=== PATIENT | female | born 1945 | race Caucasian/White ===

== ENCOUNTER 2019-08-10 11:55 | Emergency (ER) | payer OTHER, MEDICAID ==
[~2019-08-10] VITALS: Ht 152.4 cm; Wt 56.7 kg
[2019-08-10 12:13] VITALS: BP 133/76
--- NOTE | 2019-08-10 12:28 | NUR ---
C/O PRODUCTIVE COUGH, NASAL CONGESTION & HEADACHE X 1 WEEK. STATES SUBJECTIVE FEVER YESTERDAY. TOOK TYLENOL LAST NIGHT FOR FEVER, ALSO HELPED WITH THE HEADACHE. ALSO REPORTS WHITE CRUSTING ON THE EYELASHES. PT CONCERNED FOR EYE INFECTION. NO CRUSTING NOTED AT THIS TIME. PT REPORTS HAD BEEN IN CONTACT WITH SISTER'S DOG BEFORE SYMPTOMS STARTED. MED HX: TUBALIGATION, VARICOSE VAIN SURGERY, PITUITARY TUMOR SURGERY, GLAUCOMA
--- NOTE | 2019-08-10 12:32 | NUR ---
OVERHAULER HELPER @ BEDSIDE
--- NOTE | 2019-08-10 12:45 | NUR ---
DR. PARDO EVALUATING PT AT BEDSIDE.
[2019-08-10 13:27] VITALS: BP 124/62
--- NOTE | 2019-08-10 13:31 | NUR ---
Patient discharged with v/s stable. Written and verbal after care instructions given and explained. Patient alert, oriented and verbalized understanding of instructions. Ambulatory with steady gait. All questions addressed prior to discharge. ID band removed. Patient advised to follow up with PMD. Rx of CLARITIN, ROBITUSSIN, KETOTIFEN given. Patient educated on indication of medication including possible reaction and side effects. Opportunity to ask questions provided and answered.
== END 2019-08-10 13:31 | disposition home or self-care (01) ==
LOC: MED 11:55
DX: J06.9 Acute upper respiratory infection, unspecified (principal); H10.9 Unspecified conjunctivitis; H40.9 Unspecified glaucoma; Z98.41 Cataract extraction status, right eye; Z98.890 Other specified postprocedural states
CPT/HCPCS: 71045; 99283; Q0092